=== PATIENT | female | born 1940 | race African-American/Black ===

== ENCOUNTER 2019-02-17 21:56 | Emergency (ER) | payer MEDICAID, MEDICARE, OTHER ==
[~2019-02-17] VITALS: Ht 167.6 cm; Wt 64.0 kg
[2019-02-17] MEDS ORDERED: IPRATROPIUM BROMIDE (0.02%) 0.5MG/2.5ML NEB HHN STA (23:18)
[2019-02-17] MEDS ORDERED: METHYLPREDNISOLONE SOD SUCC 125 MG/2 ML VIAL IV STA (23:18)
[2019-02-17] MEDS ORDERED: ALBUTEROL (0.083%) 2.5MG/3ML NEB HHN STA (23:18)
[2019-02-17 23:31] LABS: CHLORIDE 110 mEq/L (98-107)
[2019-02-17 23:34] LABS: BASOPHILS % 0.6 % (0.0-2.0); EOSINOPHILS % 2.8 % (0.0-5.0); HEMATOCRIT. 40.7 % (36.0-48.0); HEMOGLOBIN. 13.6 g/dL (12.0-16.0); MEAN CORPUSCULAR HEMOGLOBIN 32.2 pg (28.0-32.0); MEAN CORPUSCULAR VOLUME 96.7 fL (81.0-99.0); MEAN PLATELET VOLUME 8.5 fl (7.4-10.4); NEUTROPHILS % 62.6 % (40.0-76.0); PLATELET 207 x1000/uL (130-400); RED BLOOD CELL COUNT 4.21 mill/uL (4.2-5.4); RED CELL DISTRIBUTION WIDTH 13.7 % (11.6-14.6)
[2019-02-18] MEDS ORDERED: ACETAMINOPHEN 325MG TABLET PO ONE (01:15)
[2019-02-18 02:19] LABS: BG BASE EXCESS -0.1 mmol/L (-2.0-2.0); BG CARBOXYHEMOGLOBIN 0.4 % (0.5-1.5); BG DEOXYHEMOGLOBIN 19.6 % (0.0-5.0); BG FRACTION INSPIRED OXYGEN 32; BG HCO3 ACT 26.1 mmol/L (22.0-26.0); BG METHEMOGLOBIN 0.2 % (0.0-1.5); BG OXYGEN SATURATION 80.3 % (92.0-98.5); BG OXYHEMOGLOBIN 79.8 % (94.0-97.0); BG PH 7.344 (7.350-7.450); BG PO2 47.2 mmHg (75.0-100.0); BG SAMPLE SITE RIGHT RADIAL; BG TOTAL HEMOGLOBIN 12.9 g/dL (12.0-18.0); BG VENT MODE NASAL CANNULA
[2019-02-18 03:30] VITALS: BP 141/75
== END 2019-02-18 03:43 | disposition short-term general hospital (02) ==
LOC: ER 21:56 → CANBEDREQ 02-18 05:30
DX: J44.1 Chronic obstructive pulmonary disease with (acute) exacerbation (principal)
CPT/HCPCS: 36415; 36600; 71045; 80053; 82375; 82805; 83605; 83880; 84484; 85025; 85379; 93005; 94640; 96374; 99285; J2930; J7611

== ENCOUNTER 2022-12-03 21:45 | Emergency (ER) | payer OTHER, MEDICAID ==
[~2022-12-03] VITALS: Ht 167.6 cm; Wt 61.0 kg
[~2022-12-03 21:45] MED LIST: ALBU18HF2 IH; FLUT1DIS3 INH; LEVO125T MT; LOSA50TA41 PO; MIRT-118 PO; P20 MT; VENL150C4 MT
[2022-12-03] MEDS ORDERED: METHYLPREDNISOLONE SOD SUCC 125 MG/2 ML VIAL IV STA (22:17)
[2022-12-03] MEDS ORDERED: ALBUTEROL (0.083%) 2.5MG/3ML NEB HHN STA (22:17)
[2022-12-03] MEDS ORDERED: IPRATROPIUM BROMIDE (0.02%) 0.5MG/2.5ML NEB HHN STA (22:17)
[2022-12-03 23:09] LABS: CHLORIDE 107 mEq/L (98-107); EOSINOPHILS % 4.2 % (0.0-5.0); HEMATOCRIT. 45.9 % (36.0-48.0); LYMPHOCYTES % 15.4 % (20.0-50.0); MEAN CORPUSCULAR HEMOGLOBIN 30.9 pg (28.0-32.0); MEAN CORPUSCULAR VOLUME 94.6 fL (81.0-99.0); NEUTROPHILS % 69.4 % (40.0-76.0); PLATELET 268 x1000/uL (130-400); RED BLOOD CELL COUNT 4.86 mill/uL (4.2-5.4); RED CELL DISTRIBUTION WIDTH 18.1 % (11.6-14.6)
[2022-12-03 23:16] LABS: INR 1.1; PROTHROMBIN TIME 11.8 sec (9.6-11.0)
[2022-12-04] MEDS ORDERED: ASPIRIN 325MG TABLET PO ONE (00:30)
[2022-12-04] MEDS ORDERED: FUROSEMIDE 40MG/4ML VIAL IVP ONE (00:30)
[2022-12-04] MEDS ORDERED: LORAZEPAM 2MG/ML CPJ IV ONE (01:15)
[2022-12-04] MEDS ORDERED: LEVOFLOXACIN 750MG PREMIX 150 ML IV ONE (06:45)
[2022-12-04 07:51] VITALS: BP 146/82
== END 2022-12-04 06:06 | disposition short-term general hospital (02) ==
LOC: ER 21:45 → CANBEDREQ 12-04 21:50
DX: J44.1 Chronic obstructive pulmonary disease with (acute) exacerbation (principal); I11.0 Hypertensive heart disease with heart failure; I50.9 Heart failure, unspecified; Z20.822 Contact with and (suspected) exposure to COVID-19
CPT/HCPCS: 36415; 71045; 80053; 83880; 84484; 85025; 85610; 86850; 86900; 86901; 87426; 94644; 96365; 96375; 99291; C9803; J2930